=== PATIENT | male | born 1970 | race Caucasian/White ===

== ENCOUNTER → 2019-06-15 16:43 | Outpatient (CLI) | payer OTHER, SELFPAY ==
[2019-06-15 18:15] LABS: Influenza A - CEPHEID Flu A NEGATIVE (NEGATIVE); Influenza B - CEPHEID Flu B POSITIVE (NEGATIVE)
== END ==
PROVIDERS: Visit Provider Physician Assistant
DX: J11.1 Influenza due to unidentified influenza virus with other respiratory manifestations (principal)
CPT/HCPCS: 87502

== ENCOUNTER → 2019-06-20 17:36 | Outpatient (CLI) | payer OTHER, SELFPAY ==
--- NOTE | 2019-06-20 17:40 | DI.RAD.S_ITS ---
PROCEDURE: XR CHEST 2V INDICATIONS: cough TECHNIQUE: 2 views of the chest were acquired. COMPARISON: None. FINDINGS: Surgical changes and devices: None. Lungs and pleura: Lungs are mildly edematous but the inspiratory volume on the frontal view is prominently reduced. No pleural effusions or pneumothorax. Mediastinum: Mediastinal contours are normal. Heart size is normal. Bones and chest wall: No suspicious bony abnormalities. Soft tissues appear unremarkable. IMPRESSION: A definite pneumonia is not seen. The frontal view is very limited in diagnostic accuracy secondary to prominently reduced inspiratory volume and large patient body habitus. Dictated by: Eduardo Colon M.D. on 06/20/2019 at 18:03 Approved by: Eduardo Colon M.D. on 06/20/2019 at 18:03
== END ==
PROVIDERS: Referring Provider Physician Assistant; Visit Provider Physician Assistant
DX: R05 Cough (principal)
CPT/HCPCS: 71046

== ENCOUNTER → 2019-08-19 16:46 | Outpatient (CLI) | payer OTHER, SELFPAY ==
[2019-08-19 17:25] LABS: Influenza B - CEPHEID Flu B NEGATIVE (NEGATIVE)
[2019-08-19 17:26] LABS: Influenza A - CEPHEID Flu A NEGATIVE (NEGATIVE)
[2019-08-21 12:36] LABS: COVID19 Sendout Not Detected (Not Detected)
== END ==
PROVIDERS: Visit Provider Physician Assistant
DX: R50.9 Fever, unspecified (principal); R05 Cough; J02.9 Acute pharyngitis, unspecified
CPT/HCPCS: 87070; 87502; 87635

== ENCOUNTER → 2019-08-21 14:57 | Outpatient (CLI) | payer OTHER, SELFPAY ==
[2019-08-23 03:36] LABS: COVID19 Sendout Not Detected (Not Detected)
== END ==
PROVIDERS: Visit Provider Family Medicine
DX: J02.9 Acute pharyngitis, unspecified (principal); R05 Cough
CPT/HCPCS: 87635

== ENCOUNTER → 2020-05-08 16:10 | Outpatient (CLI) | payer OTHER, SELFPAY ==
[2020-05-08] MEDS: COVID-19 VACC #1, MRNA(MOD) 100 MCG/0.5 ML VIAL IM (16:18)
== END ==
PROVIDERS: Visit Provider Internal Medicine
DX: Z23 Encounter for immunization (principal)
CPT/HCPCS: 0011A; 91301

== ENCOUNTER → 2020-06-05 16:22 | Outpatient (CLI) | payer OTHER, SELFPAY ==
[2020-06-05] MEDS: COVID-19 VACC #2, MRNA(MOD) 100 MCG/0.5 ML VIAL IM (16:31)
== END ==
PROVIDERS: Visit Provider Internal Medicine
DX: Z23 Encounter for immunization (principal)
CPT/HCPCS: 0012A; 91301

== ENCOUNTER 2024-10-17 16:35 | Emergency (ER) | payer OTHER, SELFPAY ==
[2024-10-17 16:41] VITALS: BP 139/86; PULSE 78; RESP 17; TEMP 36.4; O2SAT 98; BMI 34.2
[2024-10-17] MEDS: ACETAMINOPHEN 325 MG TABLET 975 MG PO (16:50)
[2024-10-17] MEDS: IBUPROFEN 400 MG TABLET 800 MG PO (16:51)
[2024-10-17 17:29] LABS: Influenza A - CEPHEID Flu A NEGATIVE (NEGATIVE); Influenza B - CEPHEID Flu B NEGATIVE (NEGATIVE)
[2024-10-17 17:33] LABS: COVID-19 CEPHEID 4-PLEX PCR Negative (Negative)
--- NOTE | 2024-10-17 17:49 | DI.CT.S_ITS ---
PROCEDURE: CT HEAD/BRAIN WO CON INDICATIONS: Severe headache TECHNIQUE: Noncontrast 4.5 mm thick angled axial sections acquired from the foramen magnum to the vertex, with coronal and sagittal reformats. For radiation dose reduction, the following was used: automated exposure control, adjustment of mA and/or kV according to patient size. COMPARISON: None. FINDINGS: Image quality: Diagnostic. CSF spaces: Basal cisterns are patent. No extra-axial fluid collections. Ventricles are normal in size and shape. Brain: No midline shift. No intracranial mass effect or hemorrhage. Prakash- white matter interface is normal. Skull and face: Calvarium and visualized facial bones are intact, without suspicious lesions. Sinuses: Visualized sinuses and mastoids are clear. IMPRESSION: No acute intracranial pathology. Dictated by: Néstor Gerard M.D. on 10/17/2024 at 18:15 Approved by: Néstor Gerard M.D. on 10/17/2024 at 18:16
--- NOTE | 2024-10-17 18:04 | PC.NURSE ---
c/o severe ongoing headache, tearful and tingling While walking back to CT patient doesn't want to open eyes due to pounding pressure. Denies light sensitivity. Reports worst headache. Normal gait. stable on feet.
[2024-10-17] MEDS: SODIUM CHLORIDE 0.9% 1,000 ML 1000 ML IV (20:28)
[2024-10-17] MEDS: diphenhydrAMINE 50 MG/ML VIAL IV (20:28)
[2024-10-17 20:40] LABS: Add Manual Diff / Slide Review NO; Hematocrit 47.1 % (41-53); Hemoglobin 16.0 g/dL (13.5-17.5); Lymphocytes Absolute Auto 3200 /uL (1100-4500); Mean Corpuscular HGB Conc 34.0 % (30-36); Mean Corpuscular Hemoglobin 27.6 PG (26-34); Mean Corpuscular Volume 81.1 fL (80-100); Platelet Count 199 X10^3/uL (150-400)
--- NOTE | 2024-10-17 20:47 | ED.HA ---
HPI - Headache General Chief Complaint: Headache Stated Complaint: Headache, nausea, diarrhea Time Seen by Provider: 10/17/24 19:17 Mode of arrival: Ambulatory History of Present Illness HPI Narrative: 54-year-old male has center forehead and right forehead pain for the last 2 days, no injury or trauma. Whiplash like injury fall 6 weeks ago, evaluated by clinic, occasional neck pain, no focal neuro findings. No new injury or trauma. No weakness to face arm or leg. No numbness to face arm or leg. No associated chest pain or shortness of breath. No nausea or vomiting or diarrhea. No visual changes. [id number]-[id number] ibuprofen tried, not helping. Related Data Home Medications ?Medication ?Instructions ?Recorded ?Confirmed omeprazole 20 mg capsule,delayed 20 mg PO DAILY 08/19/19 09/05/24 release empagliflozin 10 mg tablet 10 mg PO DAILY 09/05/24 09/05/24 (Jardiance) semaglutide 2 mg/dose (8 mg/3 mL) mg SUBCUT 09/05/24 09/05/24 subcutaneous pen injector (Ozempic) Allergies Allergy/AdvReac Type Severity Reaction Status Date / Time No Known Drug Allergies Allergy Verified 10/17/24 16:41 Patient History Medical History Influenza B Social History Smoking Status: Never smoker Smoking Status: Never smoker Exam Narrative Exam Narrative: GENERAL: Well-developed patient, in mild distress. HEAD: Atraumatic. Normocephalic. EYES: Pupils equal round and reactive. Extraocular motions intact. No scleral icterus. No injection or drainage. ENT: Nose without bleeding, purulent drainage. Throat without erythema, tonsillar hypertrophy or exudate. Airway patent. NECK: Trachea midline. Non tender CARDIOVASCULAR: Regular rate and rhythm without murmurs, gallops, or rubs. RESPIRATORY: Clear to auscultation. Breath sounds equal bilaterally. No wheezes, rales, or rhonchi. GASTROINTESTINAL: Abdomen soft, non-tender, nondistended. EXTREMITIES: No edema or joint tenderness. BACK: Nontender without deformity or crepitance. No flank tenderness. NEURO: AOx3. Motor functions grossly nonfocal. SKIN: No rash or erythema of visible areas Initial Vital Signs Initial Vital Signs: Vital Signs Temperature 97.6 F 10/17/24 16:41 Pulse Rate 78 10/17/24 16:41 Respiratory Rate 17 10/17/24 16:41 Blood Pressure 139/86 10/17/24 16:41 Pulse Oximetry 98 10/17/24 16:41 Oxygen Delivery Method Room Air 10/17/24 16:41 Course Orders Ordered: ED Orders 10/17/24 20:30 CBC Auto Diff [Complete Blood Count AUTO DIFF] Stat CMP [Comprehensive Metabolic Panel] Stat Discontinued Medications Acetaminophen (Acetaminophen 325 Mg Tablet) 975 mg PO NOW ONE Stop: 10/17/24 16:46 Last Admin: 10/17/24 16:50 Dose: 975 mg Documented By: YANIRA Diphenhydramine HCl (Diphenhydramine 50 Mg/Ml Vial) 50 mg IV NOW ONE Stop: 10/17/24 19:18 Last Admin: 10/17/24 20:28 Dose: 50 mg Documented By: SHANICE Sodium Chloride (Normal Saline 0.9%) 1,000 mls @ 1,000 mls/hr IV BOLUS ONE Stop: 10/17/24 21:22 Last Infusion: 10/17/24 22:04 Dose: Infused Documented By: Admin: 10/17/24 20:28 Dose: 1,000 mls/hr Documented By: SHANICE Ibuprofen (Ibuprofen 400 Mg Tablet) 800 mg PO NOW ONE Stop: 10/17/24 16:46 Last Admin: 10/17/24 16:51 Dose: 800 mg Documented By: YANIRA Ketorolac Tromethamine (Ketorolac 30 Mg/Ml Vial) 15 mg IV NOW ONE Stop: 10/17/24 20:52 Last Admin: 10/17/24 21:01 Dose: 15 mg Documented By: SERGEI Metoclopramide HCl (Metoclopramide 10 Mg/2 Ml Inj) 10 mg IV NOW ONE Stop: 10/17/24 20:52 Last Admin: 10/17/24 21:00 Dose: 10 mg Documented By: SERGEI Prochlorperazine (Prochlorperazine 10 Mg/2 Ml Vial) 5 mg IV NOW ONE Stop: 10/17/24 19:18 Last Admin: 10/17/24 20:30 Dose: Not Given Documented By: SHANICE Vital Signs Vital signs: Vital Signs - 8 hr 10/17/24 23:03 Pulse Rate 74 Respiratory Rate 18 Blood Pressure 134/78 Pulse Oximetry 100 Oxygen Delivery Method Room Air MDM - Headache Lab Data Attestation: I reviewed the patient's lab results. Lab results narrative: White blood cell count 9100, hemoglobin 16, platelets adequate. Glucose 107. Renal function normal. Electrolytes and serum CO2 normal. Liver functions normal. COVID flu RSV negative. 10/17/24 20:30 10/17/24 20:30 Labs: Lab Results 10/17/24 10/17/24 Range/Units 16:47 20:30 WBC 9.1 (4.5-11.0) X10^3/uL RBC 5.81 (4.5-5.9) X10^6/uL Hgb 16.0 (13.5-17.5) g/dL Hct 47.1 (41-53) % MCV 81.1 (80-100) fL MCH 27.6 (26-34) PG MCHC 34.0 (30-36) % RDW 14.6 (11.6-14.8) % Plt Count 199 (150-400) X10^3/uL Neut % (Auto) 54.1 (50-75) % Lymph % (Auto) 35.0 (25-40) % Walton % (Auto) 8.2 (3-14) % Eos % (Auto) 2.1 (2-4) % Baso % (Auto) 0.6 (0-2) % Neut # (Auto) 4900 (2908-1793) /uL Lymph # (Auto) 3200 (0177-5498) /uL Walton # (Auto) 700 (0-900) /uL Eos # (Auto) 200 (0-450) /uL Baso # (Auto) 100 (0-100) /uL Sodium 137 (137-145) mmol/L Potassium 3.6 (3.4-5.1) mmol/L Chloride 104 (98-107) mmol/L Carbon Dioxide 23 (22-32) mmol/L BUN 9 (9-20) mg/dL Creatinine 0.68 (0.66-1.25) mg/dL Estimated GFR > 60 (>60) mL/min BUN/Creatinine Ratio 13.2 (6-22) Glucose 107 H (70-99) mg/dL Calcium 9.6 (8.4-10.2) mg/dL Total Bilirubin 0.8 (0.2-1.3) mg/dL AST 25 (17-59) IU/L ALT 29 (<50) IU/L Alkaline Phosphatase 59 (38-126) U/L Total Protein 7.7 (6.3-8.2) g/dL Albumin 4.6 (3.5-5.0) g/dL Globulin 3.1 (1.7-4.1) g/dL Albumin/Globulin Ratio 1.5 (1.0-2.8) SARS-CoV-2 (PCR) Negative (Negative) Influenza A (RT-PCR) Flu a negative (NEGATIVE) Influenza B (RT-PCR) Flu b negative (NEGATIVE) RSV (PCR) Negative (Negative) Imaging Data CT scan - head: Radiologist's Impression: [address] [address] [address] Scan Report Signed Patient: Alphonse Reeves MR#: [id number] : 1970 Acct:[id number] Age/Sex: 54 / M Date of Service: 10/17/24 Loc: ED Accession Number: [id number] Procedure: CT head/brain wo con Ordering Provider: Edmund Barger MD PROCEDURE: CT HEAD/BRAIN WO CON INDICATIONS: Severe headache TECHNIQUE: Noncontrast 4.5 mm thick angled axial sections acquired from the foramen magnum to the vertex, with coronal and sagittal reformats. For radiation dose reduction, the following was used: automated exposure control, adjustment of mA and/or kV according to patient size. COMPARISON: None. FINDINGS: Image quality: Diagnostic. CSF spaces: Basal cisterns are patent. No extra-axial fluid collections. Ventricles are normal in size and shape. Brain: No midline shift. No intracranial mass effect or hemorrhage. Prakash-white matter interface is normal. Skull and face: Calvarium and visualized facial bones are intact, without suspicious lesions. Sinuses: Visualized sinuses and mastoids are clear. IMPRESSION: No acute intracranial pathology. Dictated by: Néstor Gerard M.D. on 10/17/2024 at 18:15 Approved by: Néstor Gerard M.D. on 10/17/2024 at 18:16 [facility] Narrative Medical decision making narrative: 54-year-old male with 2 days duration forehead center right pain, nontraumatic, had whiplash like injury 6 weeks ago, occasional headaches. No previous imaging. CT head ordered from triage. Labs sent. Initial orders for IV Compazine/Benadryl, patient apparently had some problem with Compazine and refused this order. Benadryl had been given after triage to room. Nontoxic appearing. CT head noncontrast, no acute changes. See radiology report. Screening labs unremarkable. Patient willing to try Reglan, Benadryl given prior, we will add Toradol. 2245, tolerated medications well, patient feels better, like to go home, home with family. Return precautions discussed. Discharge Plan Departure Patient Disposition: Home Clinical Impression: Headache Instructions: DI for Headache Activity Restrictions/Additional Instructions: Nontraumatic headache central in right forehead and behind the right eye. No obvious trauma or injury or inflammatory infectious changes on facial gross exam. No focal weakness or numbness. CT noncontrast brain scan showed no acute changes per Radiology report. IV Reglan with Benadryl given, also IV Toradol, symptoms significantly improved. You were able to ambulate. You felt better and requested to go home. Consider taking [id number] Tylenol and or Motrin as needed for further pain relief, for any residual symptoms as needed. Recheck with your regular doctor in the next couple of days if not resolved. Return to this/nearest emergency department for any change worsening symptoms or any concerns prior. Prescriptions: No Action omeprazole 20 mg capsule,delayed release(DR/EC) 20 mg PO DAILY Ozempic 2 mg/dose (8 mg/3 mL) pen injector SUBCUT Patient Comments: [NO ORIGINAL SIG] Jardiance 10 mg tablet 10 mg PO DAILY Referrals: Miscellaneous,Doctor, [Primary Care Provider, Medical] Stand Alone Forms: Patient Portal/API
[2024-10-17 20:51] LABS: Alanine Aminotransferase 29 IU/L (<50); Albumin 4.6 g/dL (3.5-5.0); Albumin Globulin Ratio 1.5 (1.0-2.8); Alkaline Phosphatase 59 U/L (38-126); Blood Urea Nitrogen 9 mg/dL (9-20); Calcium 9.6 mg/dL (8.4-10.2); Carbon Dioxide 23 mmol/L (22-32); Chloride 104 mmol/L (98-107); Estimated Glomerular Filt Rate > 60 mL/min (>60); Globulin 3.1 g/dL (1.7-4.1); Glucose 107 mg/dL (70-99); HEMOLYSIS < 15 (0-50); Potassium 3.6 mmol/L (3.4-5.1); Sodium 137 mmol/L (137-145); Total Protein 7.7 g/dL (6.3-8.2)
[2024-10-17] MEDS: METOCLOPRAMIDE 10 MG/2 ML INJ IV (21:00)
[2024-10-17] MEDS: KETOROLAC 30 MG/ML VIAL 15 MG IV (21:01)
[2024-10-17 23:03] VITALS: BP 134/78; PULSE 74; RESP 18; O2SAT 100
== END 2024-10-17 23:07 | disposition home or self-care (01) ==
PROVIDERS: Emergency Medicine; Emergency Provider Emergency Medicine
DX: R51.9 Headache, unspecified (principal)
CPT/HCPCS: 36415; 70450; 80053; 85025; 87637; 96361; 96374; 96375; 99284; J1200; J1885; J2765

== ENCOUNTER → 2025-04-02 08:10 | Outpatient (CLI) | payer OTHER, SELFPAY ==
[2025-04-02 09:02] LABS: Add Manual Diff / Slide Review NO; Hematocrit 46.2 % (41-53); Hemoglobin 15.3 g/dL (13.5-17.5); Lymphocytes Absolute Auto 3000 /uL (1100-4500); Mean Corpuscular HGB Conc 33.1 % (30-36); Mean Corpuscular Hemoglobin 26.8 PG (26-34); Mean Corpuscular Volume 81.0 fL (80-100); Platelet Count 186 X10^3/uL (150-400)
[2025-04-02 09:35] LABS: Hemoglobin A1C% w Est Avg Glu 6.2 % (4.0-6.0)
[2025-04-02 10:04] LABS: Alanine Aminotransferase 34 IU/L (<50); Albumin 4.5 g/dL (3.5-5.0); Albumin Globulin Ratio 1.6 (1.0-2.8); Alkaline Phosphatase 85 U/L (38-126); Blood Urea Nitrogen 13 mg/dL (9-20); Calcium 9.0 mg/dL (8.4-10.2); Carbon Dioxide 22 mmol/L (22-32); Chloride 107 mmol/L (98-107); Cholesterol 209 mg/dL (140-199); Estimated Glomerular Filt Rate > 60 mL/min (>60); Globulin 2.9 g/dL (1.7-4.1); Glucose 126 mg/dL (70-99); HDL Cholesterol 36 mg/dL (40-60); HEMOLYSIS 24 (0-50); Potassium 4.3 mmol/L (3.4-5.1); Sodium 140 mmol/L (137-145); Total Protein 7.4 g/dL (6.3-8.2)
[2025-04-02 10:13] LABS: Triglycerides > 525 mg/dL (35-150)
[2025-04-02 10:31] LABS: Prostate Specific Antigen 0.228 ng/mL (0.10-4.00)
[2025-04-02 10:38] LABS: TSH w/ Reflex to FT4 2.38 uIU/mL (0.47-4.68)
== END ==
PROVIDERS: PCP Nurse Practitioner Family; Referring Provider Nurse Practitioner Family; Visit Provider Nurse Practitioner Family
DX: Z12.5 Encounter for screening for malignant neoplasm of prostate (principal); Z13.220 Encounter for screening for lipoid disorders; E66.9 Obesity, unspecified; E11.3499 Type 2 diabetes mellitus with severe nonproliferative diabetic retinopathy without macular edema, unspecified eye
CPT/HCPCS: 36415; 80053; 80061; 83036; 84153; 84443; 85025